=== PATIENT | female | born 1995 | race Caucasian/White ===

== ENCOUNTER 2017-11-02 06:40 | Inpatient (IN) | payer MEDICAID, SELFPAY ==
[2017-11-02 07:27] VITALS: BMI 42.7
[2017-11-02] MEDS: Lactated Ringers 1,000 ML 50 ML IV ×2 (07:30→11:29)
[2017-11-02 07:47] LABS: Hematocrit 30.6 % (37-47); Hemoglobin 10.2 g/dl (12.0-15.0); Mean Corp Hgb Conc 33.3 g/gl (32-36); Mean Corpuscular Hgb 28.7 pg (27.0-32.0); Mean Platelet Vol. 9.9 fl (6.2-12.0); Platelet Count 335 K/mm3 (150-450); RBC Distribution Width CV 13.7 % (11.6-14.6); RBC Distribution Width SD 41.9 fl (35.1-43.9); Red Blood Count 3.56 M/mm3 (4.2-5.4)
[2017-11-02 07:52] LABS: Scan Indicated on CBC? Y/N NO
[2017-11-02] MEDS: Oxytocin 30 units/NS 500 ml 30 UNITS/500 ML IV.SOLN IV (07:56)
--- NOTE | 2017-11-02 09:03 | PCM.HP.OB ---
History Date of Admission: 11/02/17 Final TIA: 11/01/17 Final TIA Source: US <20 weeks Gestational age: 40 Weeks and 1 Days History of this : Patient is a @ 40.1 wks presents for elective induction of labor today for advanced cervical dilation. Patient denies any complaints and concerns and has had an uncomplicated course. Pertinent Past Medical History: Hx of GDMA1 in a previous Hx of Drug Abuse - Over 5 years ago patient admits to overuse of pain pills. Denies any use over last 5 years or during any of her pregnancies. 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 - colpo c/w CHANDRIKA 1-2 on previous biopsies, hx of negative biopsy on 09/2015 Allergies No Known Drug Allergies Allergy (Verified 07/17/17 14:23) Other Current Medications Acetaminophen (Tylenol) 325 - 650 mg PO Q4H PRN PRN PRN Reason: PAIN OR FEVER >100.4F Al Hydroxide/Mg Hydroxide (Mylanta Ii) 15 - 30 ml PO Q4H PRN PRN PRN Reason: INDIGESTION Citric Acid/Sodium Citrate (Bicitra) 30 ml PO UD PRN Lactated Ringer's () 1,000 mls @ 50 mls/hr IV .Q20H [facility] Last Admin: 11/02/17 07:30 Dose: 50 mls/hr Oxytocin/Sodium Chloride () 30 units in 500 mls @ 1 mls/hr IV .Q500H [facility] Last Admin: 11/02/17 07:56 Dose: 1 mls/hr Nalbuphine HCl (Nubain) 5 - 10 mg IV Q3H PRN PRN PRN Reason: PAIN (4-10/10) Ondansetron HCl (Zofran) 4 mg IV Q8H PRN PRN PRN Reason: NAUSEA Promethazine HCl (Phenergan (Ll)) 6.25 - 12.5 mg IV Q4H PRN PRN; Protocol PRN Reason: IF NAUSEA PERSISTS Sodium Chloride () 5 - 15 ml IV UD [facility] Last Admin: 11/02/17 08:03 Dose: Not Given Smoking Status: Never smoker Alcohol: None Drug Use: none Number of Fetus(es): 1 Review of Systems Constitutional: Denies: Chills, Fever, Weight Change HEENT: Denies: Head Aches, Sinus Congestion, Sinus Drainage Cardiovascular: Denies: Chest Pain, Palpitations Respiratory: Denies: Cough, Shortness of breath at rest, Sputum production Gastrointestinal: Denies: Abdominal Pain, Nausea, Vomiting Genitourinary: Denies: Dysuria Gynecological: Denies: Vaginal bleeding, Vaginal discharge Musculoskeletal: Denies: Joint Pain, Joint Tenderness Skin: Denies: Rash, Wounds Neurological: Denies: Numbness, Tingling, Focal weakness Psychiatric: Denies: Anxiety, Depression, Homicidal Ideations, Suicidal Ideations Hematologic/ Lymphatic: Denies: Easy Bruising, Easy Bleeding Physical Exam Vitals: See Nursing Note for Vital Signs FHT baseline 140, moderate variability, +accels, no decels Ctx q 2-3 minutes, moderate strong palpable General: Alert, Oriented x3, No apparent distress Cardiovascular: Regular rate, Regular Rhythm Lungs: Clear to auscultation Abdomen: Bowel Sounds Present, Gravid, Appropriate for Gestational Age Extremities:: No edema Estimated gestational size: Appropriate for gestational size Presentation: Cephalic Cervix Dilation (cm): 4 - head slightly ballotable Station: -2 Effacement (%): 70 Assessment/Plan A: 21 y/o @ 40.1 wks, IOL for advanced cervical dilation, Category I FHT P: 1) Admit patient 2) Pitocin induction of labor per protocol 3) Consider AROM in 3-4 hours to help progress labor 4) Pain relief medications if desired - options reviewed with patient 5) Reassess cervix PRN or with change in patient status Jayne Camp CNM
--- NOTE | 2017-11-02 09:13 | HP.PCM_ITS ---
History Date of Admission: 11/02/17 Final TIA: 11/01/17 Final TIA Source: US <20 weeks Gestational age: 40 Weeks and 1 Days History of this : Patient is a @ 40.1 wks presents for elective induction of labor today for advanced cervical dilation. Patient denies any complaints and concerns and has had an uncomplicated course. Pertinent Past Medical History: Hx of GDMA1 in a previous Hx of Drug Abuse - Over 5 years ago patient admits to overuse of pain pills. Denies any use over last 5 years or during any of her pregnancies. 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 - colpo c/w CHANDRIKA 1-2 on previous biopsies, hx of negative biopsy on 09/2015 Allergies No Known Drug Allergies Allergy (Verified 07/17/17 14:23) Other Current Medications Acetaminophen (Tylenol) 325 - 650 mg PO Q4H PRN PRN PRN Reason: PAIN OR FEVER >100.4F Al Hydroxide/Mg Hydroxide (Mylanta Ii) 15 - 30 ml PO Q4H PRN PRN PRN Reason: INDIGESTION Citric Acid/Sodium Citrate (Bicitra) 30 ml PO UD PRN Lactated Ringer's () 1,000 mls @ 50 mls/hr IV .Q20H [facility] Last Admin: 11/02/17 07:30 Dose: 50 mls/hr Oxytocin/Sodium Chloride () 30 units in 500 mls @ 1 mls/hr IV .Q500H [facility] Last Admin: 11/02/17 07:56 Dose: 1 mls/hr Nalbuphine HCl (Nubain) 5 - 10 mg IV Q3H PRN PRN PRN Reason: PAIN (4-10/10) Ondansetron HCl (Zofran) 4 mg IV Q8H PRN PRN PRN Reason: NAUSEA Promethazine HCl (Phenergan (Ll)) 6.25 - 12.5 mg IV Q4H PRN PRN; Protocol PRN Reason: IF NAUSEA PERSISTS Sodium Chloride () 5 - 15 ml IV UD [facility] Last Admin: 11/02/17 08:03 Dose: Not Given Smoking Status: Never smoker Alcohol: None Drug Use: none Number of Fetus(es): 1 Review of Systems Constitutional: Denies: Chills, Fever, Weight Change HEENT: Denies: Head Aches, Sinus Congestion, Sinus Drainage Cardiovascular: Denies: Chest Pain, Palpitations Respiratory: Denies: Cough, Shortness of breath at rest, Sputum production Gastrointestinal: Denies: Abdominal Pain, Nausea, Vomiting Genitourinary: Denies: Dysuria Gynecological: Denies: Vaginal bleeding, Vaginal discharge Musculoskeletal: Denies: Joint Pain, Joint Tenderness Skin: Denies: Rash, Wounds Neurological: Denies: Numbness, Tingling, Focal weakness Psychiatric: Denies: Anxiety, Depression, Homicidal Ideations, Suicidal Ideations Hematologic/ Lymphatic: Denies: Easy Bruising, Easy Bleeding Physical Exam Vitals: See Nursing Note for Vital Signs FHT baseline 140, moderate variability, +accels, no decels Ctx q 2-3 minutes, moderate strong palpable General: Alert, Oriented x3, No apparent distress Cardiovascular: Regular rate, Regular Rhythm Lungs: Clear to auscultation Abdomen: Bowel Sounds Present, Gravid, Appropriate for Gestational Age Extremities:: No edema Estimated gestational size: Appropriate for gestational size Presentation: Cephalic Cervix Dilation (cm): 4 - head slightly ballotable Station: -2 Effacement (%): 70 Assessment/Plan A: 21 y/o @ 40.1 wks, IOL for advanced cervical dilation, Category I FHT P: 1) Admit patient 2) Pitocin induction of labor per protocol 3) Consider AROM in 3-4 hours to help progress labor 4) Pain relief medications if desired - options reviewed with patient 5) Reassess cervix PRN or with change in patient status Jayne Camp CNM
[2017-11-02] MEDS: Oxytocin 30 units/NS 500 ml 30 UNITS/500 ML IV.SOLN 334 UNITS IV (16:31)
[2017-11-02] MEDS: Oxytocin 30 units/NS 500 ml 30 UNITS/500 ML IV.SOLN 167 UNITS IV (17:01)
--- NOTE | 2017-11-02 17:30 | OP.PCM_ITS ---
Vaginal Delivery Maternal Presentation: Elective Induction Patient is a 21 y/o presenting for elective induction of labor due to advanced cervical dilation and maternal anxiety. Patient antepartum course has been without complication. Method of Induction: Pitocin, Amniotomy Amniotic Membrane Rupture Type: Artificial Amniotic Fluid Description: Moderate meconium Final TIA: 11/01/17 Final TIA Source: US <20 weeks Gestational age: 40 Weeks and 1 Days [place] doctor who attended delivery (if requested by OB): Elaine Napoles Date of Procedure: 11/02/17 Pre-Operative Diagnosis: IOL @ 40.1 weeks for advanced cervical dilation Post-Operative Diagnosis: of viable girl baby Surgery/ Procedure Performed: Spontaneous Vaginal Delivery Anesthesiologist: Rickey Harris Type of Anesthesia: Epidural Description of Procedure: Patient found to be C/C/+1, pushed well with urge to crown. Delivered viable girl baby over intact perineum. Peds staff at bedside on standby. had spontaneous cry and respirations, infant placed on maternal abdomen where it was dried and stimulated. Mouth and nose bulb suctioned. Apgars 9 and 9. Weight pending. Umbilical cord clamped and cut once it stopped pulsing by FOB. Placenta delivered via Galindo mechanism with maternal urge and pushing intact with 3VC. Placental triage WNL save for velementous cord insertion. FF midline 2FB below umbilicus. EBL = 250 cc. Upon inspection of vaginal vault, no lacerations noted. No repair done. Sponge and needle count correct. Vaginal sweep negative. Baby to breast, bonding and initiated. Presentation: Vertex, LINH Placental Delivery Description: Spontaneous Placenta Disposition: [facility] Cord Vessel Description: 3 Vessels Cord Entanglement: None Estimated Blood Loss: 250 Infant A gender: Female (1 minute): 9 (5 minute): 9 Episiotomy Description: None Laceration: None Medications given after delivery: IV Pitocin Complications: None
[2017-11-02 19:57] VITALS: BP 111/69; PULSE 90; RESP 16; TEMP 37.2; O2SAT 99
[2017-11-02] MEDS: Acetaminophen 500 MG Tablet 1000 MG PO (21:53)
[2017-11-03 00:33] VITALS: BP 115/68; PULSE 90; RESP 16; TEMP 37.3; O2SAT 99
[2017-11-03 03:35] VITALS: BP 110/72; PULSE 92; RESP 16; TEMP 36.7; O2SAT 98
[2017-11-03] MEDS: Ibuprofen 600 MG Tablet PO ×2 (03:42→13:08)
[2017-11-03] MEDS: Acetaminophen 500 MG Tablet 1000 MG PO (08:22)
[2017-11-03 08:25] VITALS: BP 114/65; PULSE 89; RESP 16; TEMP 36.9; O2SAT 95
--- NOTE | 2017-11-03 08:32 | DCINST_ITS ---
Discharge Diet: No Restrictions Discharge Activity: Return to Normal Activity, May not drive while taking narcotic pain medications., May Shower May resume sexual activity in: 4-6 weeks Additional Activity Instructions:: Nothing in the vagina for 4-6 weeks. You may return to work/school in 6 weeks. Call your doctor if your incision/area has: Continuous Slow Oozing, Sudden Increased Bleeding, Increased Pain/ Swelling, Increased Redness, Foul Smelling Discharge Additional Instructions: If you experience any of the following, contact your healthcare provider. * Bleeding that soaks a pad every hour for 2 hours * Fever 100.4 or higher * Unrelieved incision or abdominal pain * Swelling, redness, discharge or bleeding from your incision or episiotomy site * Your incision begins to separate * Problems urinating (including inability to urinate or burning while urinating) . * Visual changes * Severe headache * Flu-like symptoms * Pain or redness in one of both of your breasts * Pain, warmth, tenderness or swelling in your legs, especially the calf area * Frequent nausea and vomiting * Symptoms of depression or anxiety If you experience any of the following, call 911 or go to the nearest Emergency Room. * Chest pain * Problems breathing * Seizure activity * Partial or complete paralysis of a body part, slurred speech, weakness or drooping of the face, or a sudden inability to walk or hold your balance Allergies/Adverse Reactions: Allergies No Known Drug Allergies Allergy (Verified 07/17/17 14:23) Other Medications to take at Discharge Vits [Prenatabs FA ] 1 tablet PO DAILY 01/11/14 Ibuprofen [Motrin] 600 mg PO Q6H PRN #60 tab 11/03/17 The following prescriptions were given: Ibuprofen [Motrin] 600 mg PO Q6H PRN #60 tab PRN Reason: Pain Orders to be completed after discharge: Electric breast pump Location: None Selected Please Follow Up With: Jayne Camp, AYAZ - [phone] When: Call to make an appointment with your provider's office in 6 weeks or as needed. If you had elevated Blood Pressure or 4th degree laceration you will need to be seen in 2 weeks. Primary Care Physician: Care Physician,No Primary [Primary Care Provider] -
--- NOTE | 2017-11-03 08:49 | PCM.PN.BLA ---
Progress Note S: Patient reports no issues today, desiring discharge to home this evening. Reports baby is latching well at breast even though she reports some mild discomfort with latching. Denies heavy vaginal bleeding, denies WALKER, scotoma or dizziness. O: VSS, Afebrile Nipples without cracks, blisters or ecchymoses. Abdomen NT x 4 quadrants, FF @ 2FB below umbilicus +2/4 reflexes in LE, no edema noted, negative calf tenderness to palpation Scant rubra lochia, perineum intact A: 21 y/o s/p , PPD #1 P: 1) Discharge patient to home pending discharge 2) RTC with CNM at [facility] for 6 week PP visit - patient to call our office to schedule 3) Continue BF at this time. Jayne Camp CNM
--- NOTE | 2017-11-03 08:53 | PN_ITS ---
Progress Note S: Patient reports no issues today, desiring discharge to home this evening. Reports baby is latching well at breast even though she reports some mild discomfort with latching. Denies heavy vaginal bleeding, denies WALKER, scotoma or dizziness. O: VSS, Afebrile Nipples without cracks, blisters or ecchymoses. Abdomen NT x 4 quadrants, FF @ 2FB below umbilicus +2/4 reflexes in LE, no edema noted, negative calf tenderness to palpation Scant rubra lochia, perineum intact A: 21 y/o s/p , PPD #1 P: 1) Discharge patient to home pending discharge 2) RTC with CNM at [facility] for 6 week PP visit - patient to call our office to schedule 3) Continue BF at this time. Jayne Camp CNM
[2017-11-03 12:30] VITALS: BP 111/72; PULSE 82; RESP 16; TEMP 36.7
[2017-11-03 16:21] VITALS: BP 131/77; PULSE 92; RESP 18; TEMP 36.8; O2SAT 97
== END 2017-11-03 18:35 | disposition home or self-care (01) | DRG 373 ==
PROVIDERS: Obstetrics & Gynecology; Admitting Provider Obstetrics & Gynecology; Visit Provider Obstetrics & Gynecology
DX: O34.33 Maternal care for cervical incompetence, third trimester (principal); O99.344 Other mental disorders complicating childbirth; F41.8 Other specified anxiety disorders; O77.0 Labor and delivery complicated by meconium in amniotic fluid; Z37.0 Single live birth; Z3A.40 40 weeks gestation of pregnancy; Z87.59 Personal history of other complications of pregnancy, childbirth and the puerperium
CPT/HCPCS: 59025; 59050; 85027; 86850; 86900; 99218; J7120; G0378

== ENCOUNTER 2021-02-13 07:03 | Inpatient (IN) | payer OTHER, SELFPAY ==
[2021-02-13] VITALS (49 sets, daily range): BP systolic 100–146; BP diastolic 55–78; PULSE 52–128; RESP 18; TEMP 36.1–37.2; O2SAT 96–99; BMI 45.8
[2021-02-13] MEDS: Lactated Ringers 1,000 ML 50 ML IV (07:50)
[2021-02-13] MEDS: Oxytocin 30 units/NS 500 ml 30 UNITS/500 ML IV.SOLN IV (08:00)
[2021-02-13 08:20] LABS: Absolute Lymphocyte Count 2.43 X10^3/uL (0.83-4.51); Absolute Neutrophil Count 6.2 X10^3/uL (2.0-7.7); Basophil# 0.04 X10^3/uL; Basophil% 0.4 % (0-1); Eosinophils% 2.1 % (0-5); Hematocrit 35.8 % (37-47); Hemoglobin 11.8 g/dL (12.0-15.0); Lymphocyte # 2.43 X10^3/ul (0.83-4.51); Lymphocyte % 25.5 % (19-41); Mean Corpuscular Hgb 28.4 pg (27.0-32.0); Mean Corpuscular Volume 86.3 fL (81-99); Monocyte# 0.63 X10^3/uL; Monocyte% 6.6 % (0-10); NRBC Flagged by Analyzer 0 % (0-5); Neutrophil # 6.21 X10^3/uL (2.7-7.7); Neutrophil % 65.1 % (47-70); Platelet Count 307 K/mm3 (150-450); RBC Distribution Width CV 13.8 % (11.6-14.6); RBC Distribution Width SD 43.1 fl (35.1-43.9); Red Blood Count 4.15 M/mm3 (4.2-5.4); White Blood Count 9.5 K/mm3 (4.4-11.0)
--- NOTE | 2021-02-13 10:17 | HP.PCM.OB_ITS ---
HPI - General General Date of Admission: 02/13/21 Date of Service: 02/13/21 Chief Complaint: induction of labor HPI Narrative PLACIDO LINDA, is a 25 F who presents Maternal Data Information Final TIA: 02/18/21 Final TIA Source: LMP Gestational age: 39 2/7 weeks [facility] Medical History (Updated 02/13/21 @ 10:[address] Wilma Contreras MD) Asthma Chlamydia infection affecting Gestational diabetes HPV (human papilloma virus) infection Home Medications Prenatabs FA 1 tab PO DAILY 01/11/14 [History Last Taken 02/12/21 20:00 1 tab] ibuprofen 600 mg PO Q6H PRN #60 tab 11/03/17 [Rx Last Taken Unknown] Allergy/AdvReac Type Severity Reaction Status Date / Time No Known Drug Allergies Allergy Other Verified 02/13/21 07:28 Surgical History (Updated 02/13/21 @ 07:55 by Santana Ospina) History of surgery Social History Smoking Status: Former smoker History Elective abortions Hx Para 3 Spontaneous abortions Hx # Term Pregnancies Ectopic pregnancies Hx # Pregnancies Multiple births # of living children NST FHR Rate Baby A Baseline: normal Variability:: Moderate Accelerations:: 15 x 15 Decelerations:: None NST Reactive:: Yes FHR Category:: Category I Uterine Activity:: irreg ctxs ROS Constitutional Constitutional: Denies fatigue, fever(s) or malaise Eyes Eyes: Denies change in vision ENT HEENT: Denies dizziness or headache(s) Cardiovascular Cardiovascular: Denies chest pain, dyspnea or lightheadedness Respiratory/Chest Respiratory/Chest: Denies cough or dyspnea Gastrointestinal Gastrointestinal: Denies change in bowel habits Genitourinary Genitourinary: Denies burning urination or genital lesions Integumentary Integumentary: Denies rash Neurologic Neurologic: Denies confusion, dizziness, headache(s), numbness or weakness Vital Signs Vital Signs Vital Signs: 02/13/21 07:25 02/13/21 07:26 02/13/21 07:31 Temperature 97.0 F L Pulse Rate 95 78 Blood Pressure BP Systolic BP Diastolic Pulse Ox 97 96 02/13/21 07:55 Temperature Pulse Rate 97 Blood Pressure 113/73 BP Systolic 113 BP Diastolic 73 Pulse Ox Weight Weight: 117.3 kg Body Mass Index (BMI) 45.8 Physical Exam Narrative cervix 3/50/-4, AROM w/ return of moderate amount of clear fluid Const alert and no apparent distress General Appearance: cooperative HEENT normocephalic Resp normal respiratory effort Cardio regular rate GI soft to palpation GI Narrative: gravid, nontender, appropriate for gestational age Extremity no calf tenderness General Extremity: edema Skin no wounds Rashes: No rashes noted Psych activity/motor behavior normal Labs Labs Labs: Blood Type O POSITIVE Antibody Screen NEGATIVE Hct 35.8 % (37-47) L Hgb 11.8 g/dL (12.0-15.0) L Rhogam given: No Assessment & Plan (1) 39 weeks gestation of : (2) Maternal obesity syndrome in third trimester: (3) Supervision of other high risk pregnancies, third trimester: (4) Elective induction of labor planned: PLAN: Risk benefits alternatives to induction labor him discussed with the patient, her questions were answered to her satisfaction she desires to proceed. We will plan Pitocin and artificial rupture membrane induction of labor. Estimated weight is less than 4500 g clinically and pelvis clinically adequate to expect vaginal delivery. May have epidural, nitrous oxide, or IV meds as needed for pain control. (5) Obesity, Class III, BMI 40-49.9 (morbid obesity):
[2021-02-13] MEDS: Lactated Ringers 500 ML 999 ML IV (11:59)
[2021-02-13] MEDS: fentaNYL-bupivacaine (epidural) 100 ML BAG EPIDURAL (12:30)
[2021-02-13] MEDS: Lactated Ringers 1,000 ML 200 ML IV (13:33)
[2021-02-13] MEDS: Oxytocin 30 units/NS 500 ml 30 UNITS/500 ML IV.SOLN 334 UNITS IV (16:17)
--- NOTE | 2021-02-13 16:30 | EX.PCM.OBRPT ---
Assessment & Plan (1) Normal vaginal delivery: Maternal Data Information Final TIA: 02/18/21 Gestational age: 39 2/7 Vaginal Delivery Maternal Presentation Maternal Presentation: Elective Induction Type of Induction: Pitocin and Amniotomy Operative Information Date of Procedure: 02/13/21 Pre-Operative Diagnosis: labor Post-Operative Diagnosis: same Surgery / Procedure Performed: Spontaneous Vaginal Delivery Type of Anesthesia: Epidural Special Medications: none Drain: Anguiano to straight drain Estimated Blood Loss: 200 Time of Delivery: 16:16 Findings Description of Procedure: A vigorous male infant was delivered STEFANO over an intact perineum. A loose nuchal cord ?1 was easily reduced. The remainder the infant was delivered with maternal pushing and gentle traction only in less than 15 seconds. The Pitocin infusion was initiated for active management of the third stage. The cord was clamped and cut after 1 minute. The was attended to by the waiting nursing staff. The placenta was delivered spontaneously and intact. The cervix and vagina were intact. Sponge and needle counts were correct. A vaginal sweep was completed by me. Presentation: STEFANO Amniotic Fluid Description: Clear Placental Delivery Description: Spontaneous Placenta Disposition: [facility] Cord Vessel Description: 3 Vessels Cord Entanglement: Around neck x 1, loose Nuchal Cord Compression: Without compression A Gender: Male (Venu (kaiden)) (1 minute): 8 (5 minute): 9 Delayed Cord Clamping: Yes Post Vaginal Delivery Medications Given After Delivery: IV Pitocin Episiotomy Description: None Laceration: None Complication Complications: None
[2021-02-13] MEDS: Naproxen 500 MG Tablet PO (19:22)
[2021-02-14] VITALS (9 sets, daily range): BP systolic 113–128; BP diastolic 66–72; PULSE 47–94; RESP 16–18; TEMP 36.6–37.2; O2SAT 97–99
[2021-02-14] MEDS: Acetaminophen 500 MG Tablet 1000 MG PO (02:29)
[2021-02-14] MEDS: Naproxen 500 MG Tablet PO (11:10)
--- NOTE | 2021-02-14 12:11 | PCM.DC.SUM ---
Providers Date of Admission: 02/13/21 Primary Care Physician: No Primary Care Phys Reason For Visit: VAG DELIVERY Diagnosis Discharge Diagnosis (1) Normal vaginal delivery: Status: Acute Code(s): O80 - Encounter for full-term uncomplicated delivery Medications at Discharge Home Medications Prenatabs FA 1 tab PO DAILY 01/11/14 ibuprofen 600 mg PO Q6H PRN #60 tab 02/14/21 Physical Exam Const alert and oriented x3 General Appearance: cooperative Orientation / Consciousness: awake, oriented to person, oriented to place and oriented to time Exam Limitations: no limitations HEENT normocephalic Head and Scalp: normal to inspection, normocephalic and atraumatic Face and Sinus: normal facial exam Eyes General Eye: normal appearance of both eyes Neck full ROM Chest Chest: symmetrical chest wall rise Resp normal respiratory effort and normal air movement Auscultation: clear to auscultation bilaterally Cardio regular rate, regular rhythm, S1 normal heart sound, S2 normal heart sound, no murmurs, no rub, no gallops and no clicks GI normal to inspection, nondistended, normoactive bowel sounds and non-tender GI Narrative: fundus firm 2 below U appearance of the vagina normal Bladder / Kidney Exam: no CVA tenderness Back/Spine normal ROM Extremity normal to inspection and full ROM General Extremity: edema bilateral (+1 non pitting. Araceli's negative bilaterally) Skin no rashes or lesions noted Neuro oriented x3, CN's II-XII intact bilaterally and moves all extremities Sensorium / Orientation: awake, alert and oriented to person Motor Exam: clonus absent Deep Tendon Reflexes: Rt Patellar (L4): 2+ and Lt Patellar (L4): 2+ Weight / BMI Weight Weight: 258 lb 9.636 oz Body Mass Index (BMI) 45.8 ABG / Lab / Microbiology Data Result Diagrams: 02/13/21 07:50 D/C Instructions Discharge Diet: No restrictions Discharge Activity: Return to Normal Activity, May Drive, May Shower and May Take a Tub Bath May resume sexual activity in: 6 weeks Weight Bearing Status: Full weight bearing Lifting Restricted to (Lbs): 20 Call your doctor if your incision/area has: Sudden Increased Bleeding, Increased Pain/ Swelling, Increased Redness and Foul Smelling Discharge Call your doctor if you observe: Fever of 101 or Higher, Inability to urinate, Inability to have a bowel movement, Using more than 1 pad per hour, Shortness of breath, Dizziness, Fainting spells, Chest pain, Increased palpitations (irregular heartbeat), Calf discomfort and Uncontrolled pain Suture Line Care: Avoid Pulling/Pushing Meaningful Use Info Meaningful Use Diagnoses (Choose all that apply): None applicable Discharge Plan Admission Admit Date/Time: 02/13/21 07:03 Primary Reason for Your Visit: Attending Provider: Wilma Contreras Primary Care Provider: Care Physician,No Primary Instructions Patient Instructions: After a Vaginal Discharge Orders/Prescriptions Prescriptions: Continued Prenatabs FA 1 TABLET tablet 1 tab PO DAILY RF: 0 ibuprofen 600 MG tablet 600 mg PO Q6H PRN (Reason: Pain) Qty: 60 RF: 1 Referrals / Follow Up: Care Physician,No Primary [Primary Care Provider] - Disposition Disposition (needs filled in before D/C Order can be placed): Home, self care
--- NOTE | 2021-02-14 12:16 | PCM.PROGNOTE ---
Subjective Subjective Doing well per patient and nursing staff. Ambulating and taking PO without difficulty. Voiding and passing flatus. Denies headache, visual changes, chest pain, shortness of breath, increased vaginal bleeding or clots. Pain controlled. Bottle feeding. Planning discharge home today. Objective Data Objective Data Vital Signs: Vital Signs Temp Pulse Resp BP Pulse Ox 98 F 79 16 113/72 99 02/14/21 08:00 02/14/21 08:00 02/14/21 08:00 02/14/21 08:00 02/14/21 04:55 Oxygen Delivery Method Room Air Weight: 258 lb 9.636 oz Body Mass Index (BMI) 45.8 Intake & Output: Intake and Output for Last 24 Hours 02/12/21 02/13/21 02/14/21 23:59 23:59 23:59 Intake Total 2768.67 / 2768.67 Output Total 1400 / 1400 Balance 1368.67 / 1368.67 Lab / Micro Data Result Diagrams: 02/13/21 07:50 Physical Exam Const alert and oriented x3 General Appearance: cooperative Orientation / Consciousness: awake, oriented to person, oriented to place and oriented to time Exam Limitations: no limitations HEENT normocephalic Head and Scalp: normal to inspection, normocephalic and atraumatic Face and Sinus: normal facial exam Eyes General Eye: normal appearance of both eyes Neck full ROM Chest Chest: symmetrical chest wall rise Resp normal respiratory effort and normal air movement Auscultation: clear to auscultation bilaterally Cardio regular rate, regular rhythm, S1 normal heart sound, S2 normal heart sound, no murmurs, no rub, no gallops and no clicks GI normal to inspection, nondistended, normoactive bowel sounds and non-tender appearance of the vagina normal Bladder / Kidney Exam: no CVA tenderness Back/Spine normal ROM Extremity normal to inspection and full ROM Skin no rashes or lesions noted Neuro oriented x3, CN's II-XII intact bilaterally and moves all extremities Sensorium / Orientation: awake, alert and oriented to person Motor Exam: clonus absent Deep Tendon Reflexes: Rt Patellar (L4): 2+ and Lt Patellar (L4): 2+ Assessment & Plan Assessment/Plan (1) Normal vaginal delivery: PLAN: 1) Routine 2) Ibuprofen 600mg PO q6h PRN for pain 3) D/C instructions given 4) 2 weeks and 6 weeks PP in office 5) D/C home
== END 2021-02-14 16:55 | disposition home or self-care (01) | DRG 807 ==
PROVIDERS: Admitting Provider Obstetrics & Gynecology; Visit Provider Obstetrics & Gynecology
DX: O69.81X0 Labor and delivery complicated by cord around neck, without compression, not applicable or unspecified (principal); Z37.0 Single live birth; O99.214 Obesity complicating childbirth; E66.01 Morbid (severe) obesity due to excess calories; O99.52 Diseases of the respiratory system complicating childbirth; J45.909 Unspecified asthma, uncomplicated; Z86.32 Personal history of gestational diabetes; Z87.891 Personal history of nicotine dependence; Z3A.39 39 weeks gestation of pregnancy
CPT/HCPCS: 59025; 59050; 85025; 86850; 86900; 86901; 99218; J7120; G0378